=== PATIENT | female | born 1945 | race Caucasian/White ===

== ENCOUNTER 2017-09-18 09:49 | Day surgery (SDC) | payer MEDICARE ==
[2017-09-12 12:02] LABS: BASOPHILS # (AUTO) 0.1 X10'3 (0-0.2); BASOPHILS % (AUTO) 0.8 % (0-1); EOSINOPHILS # (AUTO) 0.2 X10'3 (0-0.9); EOSINOPHILS % (AUTO) 2.1 % (0-6); HEMATOCRIT 42.5 % (35.0-45.0); LYMPHOCYTES # (AUTO) 2.3 X10'3 (1.1-4.8); LYMPHOCYTES % (AUTO) 19.7 % (21-51); MEAN CORPUSCULAR HEMOGLOBIN 30.4 PG (27.0-31.0); MEAN PLATELET VOLUME 8.4 FL (7.4-10.4); MONOCYTES # (AUTO) 1.1 X10'3 (0-0.9); MONOCYTES % (AUTO) 8.9 % (2-12); NEUTROPHILS # (AUTO) 8.1 X10'3 (1.8-7.7); NEUTROPHILS % (AUTO) 68.5 % (42-75); PLATELET COUNT 337 X10'3 (140-440); RED BLOOD COUNT 4.62 X10'6 (4.20-5.60); RED CELL DISTRIBUTION WIDTH 14.9 % (11.5-14.5); WHITE BLOOD COUNT 11.9 X10'3 (4.5-11.0)
[2017-09-12 12:18] LABS: PARTIAL THROMBOPLASTIN TIME 29 SECONDS (22-32); PROTHROMBIN TIME 10.2 SECONDS (9.0-12.0)
[2017-09-12 12:21] LABS: ALBUMIN 3.4 G/DL (3.4-5.0); ANION GAP 10 (8-16); BLOOD UREA NITROGEN 18 MG/DL (7-18); BUN/CREATININE RATIO 15.4 (6.6-38.0); CALCIUM 9.3 MG/DL (8.5-10.1); CHLORIDE 106 MMOL/L (99-107); CHOL/HDL RATIO 2.4 (0.00-4.99); CHOLESTEROL 111 MG/DL (0-200); CREATININE 1.17 MG/DL (0.40-0.90); GLUCOSE 139 MG/DL (70-104); HDL CHOLESTEROL 46 MG/DL (35-60); LDL CHOLESTEROL 45 MG/DL (50-100); POTASSIUM 4.2 MMOL/L (3.5-5.1); SODIUM 142 MMOL/L (135-145); TOTAL CARBON DIOXIDE 26.2 MMOL/L (24-32); TRIGLYCERIDES 107 MG/DL (20-135); eGFR 45 ML/MIN
[~2017-09-18] VITALS: Ht 154.9 cm; Wt 53.4 kg
[2017-09-18] VITALS (12 sets, daily range): BP systolic 112–132; BP diastolic 51–62
[2017-09-18] MEDS ORDERED: LORazepam 0.5 MG tablet PO PRN (10:15)
[2017-09-18] MEDS ORDERED: diphenhydrAMINE 25mg capsule PO PRN (10:15)
[2017-09-18] MEDS ORDERED: normal saline 1000ml 1,000 ML IV SCH ×2 (10:15→13:30)
[2017-09-18] MEDS ORDERED: RANI150C4 PO (10:39)
[2017-09-18] MEDS ORDERED: ROSU40TA PO (10:39)
[2017-09-18] MEDS ORDERED: METF1000 PO (10:39)
[2017-09-18] MEDS ORDERED: MIRT45TA PO (10:39)
[2017-09-18] MEDS ORDERED: CLOP75TA35 PO (10:39)
[2017-09-18] MEDS ORDERED: ASPI-611 PO (10:39)
[2017-09-18] MEDS ORDERED: fentaNYL/PF 50MCG/1 ML 2ML syringe ONE (11:50)
[2017-09-18] MEDS ORDERED: LIDOcaine 1% w/EPI 1:100,000 30ml vial (MDV) ONE (11:50)
[2017-09-18] MEDS ORDERED: midazolam 2 mg/2 ml injection ONE (11:50)
[2017-09-18] MEDS ORDERED: iohexol 350MG/ML 100ml bottle IV ONE (11:50)
[2017-09-18] MEDS ORDERED: HYDROcodone/acetaminophen 10/325mg tab PO PRN (13:30)
[2017-09-18] MEDS ORDERED: HYDROcodone/acetaminophen 5mg/325mg tablet PO PRN (13:30)
[2017-09-18] MEDS ORDERED: OXAZEpam 15mg capsule PO PRN (13:30)
[2017-09-18] MEDS ORDERED: nitroGLYCERIN 0.4mg SUBLingual tab SL PRN (13:30)
[2017-09-18] MEDS ORDERED: proCHLORperazine 10 MG/2 ml inj IV PRN (13:30)
[2017-09-18] MEDS ORDERED: ondansetron/PF 4mg/2ml inj IV PRN (13:30)
== END 2017-09-18 18:05 | disposition home or self-care (01) ==
LOC: SSTAY O 09:49
PROVIDERS: ATTEND Internal Medicine Interventional Cardiology
DX: I25.10 Atherosclerotic heart disease of native coronary artery without angina pectoris (principal); I45.10 Unspecified right bundle-branch block; E11.9 Type 2 diabetes mellitus without complications; I65.23 Occlusion and stenosis of bilateral carotid arteries; M85.88 Other specified disorders of bone density and structure, other site; I10 Essential (primary) hypertension; E78.5 Hyperlipidemia, unspecified; F17.210 Nicotine dependence, cigarettes, uncomplicated; F32.9 Major depressive disorder, single episode, unspecified; F41.9 Anxiety disorder, unspecified; Z95.5 Presence of coronary angioplasty implant and graft; Z90.89 Acquired absence of other organs; Z72.89 Other problems related to lifestyle; Z86.79 Personal history of other diseases of the circulatory system; Z86.73 Personal history of transient ischemic attack (TIA), and cerebral infarction without residual deficits; Z79.01 Long term (current) use of anticoagulants; Z79.84 Long term (current) use of oral hypoglycemic drugs; Z79.82 Long term (current) use of aspirin; Z79.899 Other long term (current) drug therapy
CPT/HCPCS: 36415; 80048; 80061; 82948; 85025; 85610; 85730; 93005; 93458; 99152; 99153; A6257; C1769; J1644; J2250; J3010; J3490; J7030; Q0163; Q9967; A4620

== ENCOUNTER 2018-01-30 05:29 | Inpatient (IN) | payer MEDICARE ==
[2018-01-28 13:56] LABS: ABG BASE EXCESS -0.2 mmol/L (-2.0-3.0); ABG HCO3 23.8 mmol/L (22.0-26.0); ABG OXYGEN SATURATION 96.5 % (95-98); ABG PCO2 (T) 36.8 mmHg (32.0-45.0); ABG PH (T) 7.429 (7.350-7.450); ABG PO2 (T) 79.9 mmHg (83-108); ALLEN'S TEST Positive; FCOHb 6.6 % (0.5-1.5); FMetHb 0.3 % (0.3-1.12); FO2Hb 89.8 % (94-100); TOTAL HEMOGLOBIN 13.7 G/dl (12.0-16.0)
[2018-01-28 14:37] LABS: CLARITY,URINE CLEAR (Clear); COLOR,URINE YELLOW (Yellow); GLUCOSE, URINE NEGATIVE (Neg); KETONES,URINE NEGATIVE (Neg); LEUKOCYTE ESTERASE ,URINE LARGE (Neg); NITRITES, URINE NEGATIVE (Neg); OCCULT BLOOD,URINE NEGATIVE (Neg); PROTEIN,URINE NEGATIVE (Neg); UROBILINOGEN,URINE 0.2 E.U/dL (0.2-1.0)
[2018-01-28 14:44] LABS: ALBUMIN 3.7 G/DL (3.4-5.0); ALKALINE PHOSPHATASE 62 IU/L (46-116); BLOOD UREA NITROGEN 17 MG/DL (7-18); BUN/CREATININE RATIO 17.3 (6.6-38.0); CALCIUM 8.9 MG/DL (8.5-10.1); CHLORIDE 105 MMOL/L (99-107); CREATININE 0.98 MG/DL (0.40-0.90); PRE OP ALT 28 U/L (30-65); PRE OP ANION GAP 10 (8-16); PRE OP AST 26 U/L (10-37); PRE OP BILIRUB, TOTAL 0.3 MG/DL (0.0-1.0); PRE OP GLUCOSE 78 MG/DL (70-104); PRE OP SODIUM 142 MMOL/L (135-145); TOTAL CARBON DIOXIDE 27.3 MMOL/L (24-32); TOTAL PROTEIN 7.4 G/DL (6.4-8.2); eGFR 56 ML/MIN
[2018-01-28 14:52] LABS: BASOPHILS # (AUTO) 0.1 X10'3 (0-0.2); BASOPHILS % (AUTO) 1.3 % (0-1); EOSINOPHILS # (AUTO) 0.2 X10'3 (0-0.9); EOSINOPHILS % (AUTO) 2.2 % (0-6); LYMPHOCYTES # (AUTO) 3.2 X10'3 (1.1-4.8); LYMPHOCYTES % (AUTO) 33.8 % (21-51); MEAN CORPUSCULAR HEMOGLOBIN 30.8 PG (27.0-31.0); MEAN CORPUSCULAR HGB CONC 34.2 % (33.0-36.5); MEAN CORPUSCULAR VOLUME 90.1 FL (78-98); MEAN PLATELET VOLUME 8.9 FL (7.4-10.4); MONOCYTES # (AUTO) 0.9 X10'3 (0-0.9); NEUTROPHILS # (AUTO) 5.1 X10'3 (1.8-7.7); NEUTROPHILS % (AUTO) 53.7 % (42-75); PRE OP HEMATOCRIT 38.9 % (35.0-45.0); PRE OP HEMOGLOBIN 13.3 g/dL (12.0-16.0); PRE OP PLATELET COUNT 378 X10'3 (140-440); RED BLOOD COUNT 4.32 X10'6 (4.20-5.60); RED CELL DISTRIBUTION WIDTH 14.5 % (11.5-14.5)
[2018-01-28 14:52] LABS: UA COLLECTION TYPE CLN CATCH MIDSTREAM
[2018-01-28 14:54] LABS: BACTERIA,URINE 1+ /HPF (Neg); RBC,URINE NONE SEEN /HPF (0-2); SQUAMOUS EPITHELIAL CELL,UR FEW /LPF (FEW); WBC,URINE 30-50 /HPF (0-4)
[2018-01-30] VITALS (17 sets, daily range): BP systolic 98–138; BP diastolic 50–62
[~2018-01-30] VITALS: Ht 156.2 cm; Wt 65.4 kg
[2018-01-30] MEDS: insulin regular, human inj. 100 UNITS in normal saline 100ml IV IV SCH ×2 (05:00)
[~2018-01-30 05:29] MED LIST: ASPI-611 PO; CLOP75TA35 PO; LORazepam 2 mg/ml vial IV PRN; METF1000 PO; MIRT45TA PO; RANI150C4 PO; ROSU40TA PO; ceFAZolin 2gm in dextrose, iso 100 ML IV ONE; cefazolin/dext.iso 2gm/100 ML IV ONE; dextrose 50%-water 50ml dispensing syringe IV PRN; insulin Lispro (HumaLOG) vial - multi-dose SQ PRN; ringers solution, lacted 1,000 ML IV SCH
[2018-01-30] MEDS ORDERED: metoprolol tartrate 12.5mg (1/2 tablet) PO ONE (05:30)
[2018-01-30] MEDS ORDERED: albuterol 2.5 MG/3 ML nebule NEB ONE (05:30)
[2018-01-30] MEDS ORDERED: famotidine 20mg tablet PO ONE (05:30)
[2018-01-30] MEDS ORDERED: cefazolin/dext.iso 2gm/100 ML IV ONE (05:30)
[2018-01-30] MEDS ORDERED: VANCOMYCIN INJ 1000 MG in NORMAL SALINE 250ml IV.SOLN IV ONE (05:30)
[2018-01-30] MEDS ORDERED: LIDOcaine 1% (10mg/ml) 2ml vial ONE (05:51)
[2018-01-30] MEDS: mupirocin 2% nasal ointment 1gm UD NS SCH ×3 (06:03→20:25)
[2018-01-30] MEDS ORDERED: LORazepam 2 mg/ml vial ONE (07:45)
[2018-01-30] MEDS ORDERED: protamine sulf. 10mg/ml inj. IV ONE (07:45)
[2018-01-30] MEDS ORDERED: INSULIN R 100 UNIT in NS 100ML (1 UNIT/1 ML) BAG IV ONE (07:45)
[2018-01-30] MEDS ORDERED: isoflurane 100ml inhalation liquid IH ONE (07:45)
[2018-01-30] MEDS ORDERED: DOPamine/D5W 400mg/250ml bag IV ONE (07:45)
[2018-01-30] MEDS ORDERED: nitroGLYCERIN in D5W 50mg/250ml (Tridil) infusion IV ONE (07:45)
[2018-01-30] MEDS ORDERED: aminocaproic acid 250 MG/1 ML inj. ONE ×2 (07:45→09:00)
[2018-01-30] MEDS ORDERED: SUFENTANIL CITRATE 50 MCG/ML 2ml ampule IV ONE (07:56)
[2018-01-30] MEDS ORDERED: etomidate 2mg/ml inj. ONE (07:58)
[2018-01-30] MEDS ORDERED: pancuronium br 1mg/ml inj IV ONE (07:58)
[2018-01-30] MEDS ORDERED: rocuronium 10mg/ml inj IV ONE (07:58)
[2018-01-30 08:51] LABS: ABG BASE EXCESS -3.3 mmol/L (-2.0-3.0); ABG HCO3 21.6 mmol/L (22.0-26.0); ABG OXYGEN SATURATION 99.6 % (95-98); ABG PH 7.372 (7.350-7.450); ABG PO2 485.3 mmHg (60.0-100.0); CL (ABG) 109 mmol/L (99-107); FCOHb 2.7 % (0.5-1.5); FMetHb 0.2 % (0.3-1.12); FO2Hb 96.7 % (94-100); GLUCOSE (ABG) 116 mg/dl (70-105); IONIZED CA (ABG) 1.18 mmol/L (1.03-1.32); K (ABG) 4.3 mmol/L (3.3-5.1); NA (ABG) 138 mmol/L (135-145); TOTAL HEMOGLOBIN 11.5 G/dl (12.0-16.0)
[2018-01-30] MEDS ORDERED: potassium Cl 2 mEq/ml inj IV ONE (09:00)
[2018-01-30] MEDS ORDERED: heparin 10,000 units/1 ML INJ ONE (09:00)
[2018-01-30] MEDS ORDERED: phenylephrine 10mg/ml inj. ONE (09:00)
[2018-01-30] MEDS ORDERED: sodium bicarbonate (8.4%) 1 mEq/ml syringe ONE (09:00)
[2018-01-30] MEDS ORDERED: albumin (human) 25% 100 ML IV solution IV ONE (09:00)
[2018-01-30] MEDS ORDERED: LIDOcaine 2% (20 mg/ml) 5ml cardiac syringe ONE (09:00)
[2018-01-30] MEDS ORDERED: heparin 1,000 units/ml 10ml inj ONE (09:00)
[2018-01-30] MEDS ORDERED: methylPREDNISolone sod succ 1000mg vial ONE (09:00)
[2018-01-30] MEDS ORDERED: magnesium sulf 1 GM/2 ML ONE (09:00)
[2018-01-30] MEDS ORDERED: calcium chloride 100 MG/1 ML inj IV ONE (09:00)
[2018-01-30 09:11] LABS: ACT @ 1.70 U 323 SEC (193-297); ACT @ 2.84 U 453 SEC (260-420); BASELINE ACT 163 SEC (101-148); PATIENT WEIGHT 54.0k KG
[2018-01-30 09:45] LABS: ABG HCO3 23.4 mmol/L (22.0-26.0); ABG OXYGEN SATURATION 99.4 % (95-98); ABG PCO2 37.3 mmHg (35.0-45.0); ABG PH 7.415 (7.350-7.450); ABG PO2 412.8 mmHg (60.0-100.0); CL (ABG) 107 mmol/L (99-107); FCOHb 2.6 % (0.5-1.5); FMetHb 0.3 % (0.3-1.12); FO2Hb 96.5 % (94-100); GLUCOSE (ABG) 145 mg/dl (70-105); IONIZED CA (ABG) 1.01 mmol/L (1.03-1.32); K (ABG) 5.1 mmol/L (3.3-5.1); NA (ABG) 132 mmol/L (135-145); TOTAL HEMOGLOBIN 7.9 G/dl (12.0-16.0)
[2018-01-30 10:01] LABS: ABG HCO3 VENOUS 24.7 mmol/L; ABG PCO2 VENOUS 45.8 mmHg; ABG PO2 VENOUS 56.3 mmHg; CL (ABG) 107 mmol/L (99-107); FCOHb VENOUS 2.4 %; FHHb VENOUS 11.5 %; FMetHb VENOUS 0.3 %; FO2Hb VENOUS 85.8 %; GLUCOSE (ABG) 170 mg/dl (70-105); IONIZED CA (ABG) 1.05 mmol/L (1.03-1.32); K (ABG) 4.4 mmol/L (3.3-5.1); NA (ABG) 132 mmol/L (135-145); TOTAL HEMOGLOBIN 8.6 G/dl (12.0-16.0)
[2018-01-30 10:26] LABS: ABG BASE EXCESS -2.2 mmol/L (-2.0-3.0); ABG HCO3 23.5 mmol/L (22.0-26.0); ABG OXYGEN SATURATION 99.4 % (95-98); ABG PCO2 44.2 mmHg (35.0-45.0); ABG PH 7.343 (7.350-7.450); ABG PO2 355.4 mmHg (60.0-100.0); CL (ABG) 108 mmol/L (99-107); FCOHb 2.3 % (0.5-1.5); FMetHb 0.3 % (0.3-1.12); FO2Hb 96.8 % (94-100); GLUCOSE (ABG) 148 mg/dl (70-105); IONIZED CA (ABG) 1.05 mmol/L (1.03-1.32); K (ABG) 3.6 mmol/L (3.3-5.1); NA (ABG) 135 mmol/L (135-145); TOTAL HEMOGLOBIN 8.4 G/dl (12.0-16.0)
[2018-01-30 11:00] LABS: ABG BASE EXCESS -1.8 mmol/L (-2.0-3.0); ABG HCO3 21.6 mmol/L (22.0-26.0); ABG PCO2 30.8 mmHg (35.0-45.0); ABG PH 7.464 (7.350-7.450); ABG PO2 447.1 mmHg (60.0-100.0); CL (ABG) 103 mmol/L (99-107); FCOHb 2.4 % (0.5-1.5); FMetHb 0.5 % (0.3-1.12); FO2Hb 96.1 % (94-100); GLUCOSE (ABG) 104 mg/dl (70-105); IONIZED CA (ABG) 1.41 mmol/L (1.03-1.32); K (ABG) 3.7 mmol/L (3.3-5.1); NA (ABG) 129 mmol/L (135-145); TOTAL HEMOGLOBIN 7.2 G/dl (12.0-16.0)
[2018-01-30 11:41] LABS: ABG BASE EXCESS 0.9 mmol/L (-2.0-3.0); ABG HCO3 25.4 mmol/L (22.0-26.0); ABG OXYGEN SATURATION 99.2 % (95-98); ABG PCO2 40.2 mmHg (35.0-45.0); ABG PH 7.419 (7.350-7.450); ABG PO2 474.7 mmHg (60.0-100.0); CL (ABG) 109 mmol/L (99-107); FCOHb 1.6 % (0.5-1.5); FMetHb 0.7 % (0.3-1.12); FO2Hb 96.9 % (94-100); GLUCOSE (ABG) 91 mg/dl (70-105); NA (ABG) 137 mmol/L (135-145); TOTAL HEMOGLOBIN 8.3 G/dl (12.0-16.0)
[2018-01-30 12:10] LABS: ACTIVATED CLOTTING TIME 132 SEC (101-148)
[2018-01-30] MEDS ORDERED: ondansetron/PF 4mg/2ml inj IV PRN (12:10)
[2018-01-30] MEDS ORDERED: acetaminophen 325mg tablet PO PRN (12:10)
[2018-01-30] MEDS ORDERED: sodium phosphate inj. 30 MMOL in dextrose 5%-water 250 ML IV PRN (12:10)
[2018-01-30] MEDS ORDERED: DOPamine 400mg/D5W 250ml 250 ML IV PRN (12:10)
[2018-01-30] MEDS ORDERED: dextrose 50%-water 50ml dispensing syringe IV PRN (12:10)
[2018-01-30] MEDS ORDERED: magnesium hydroxide 30ml (MOM) UD suspension PO PRN (12:10)
[2018-01-30] MEDS ORDERED: HYDROcodone/acetaminophen 10/325mg tab PO PRN (12:10)
[2018-01-30] MEDS ORDERED: potassium Cl 20mEq/100mL bag 100 ML IV PRN ×2 (12:10)
[2018-01-30] MEDS ORDERED: magnesium 4gm in 100ml NS 100 ML IV PRN (12:10)
[2018-01-30] MEDS ORDERED: Neutra Phos packet PO PRN (12:10)
[2018-01-30] MEDS ORDERED: insulin regular, human inj. 100 UNITS in normal saline 100ml IV soln 100 ML IV SCH ×2 (12:10)
[2018-01-30] MEDS ORDERED: sodium phosphate inj. 15 MMOL in dextrose 5%-water 150 ML IV PRN (12:10)
[2018-01-30] MEDS ORDERED: nitroGLYCERIN-Tridil 50MG/D5W 250 ML IV PRN (12:10)
[2018-01-30] MEDS ORDERED: metoclopramide 5 mg/ml inj IV PRN (12:10)
[2018-01-30] MEDS ORDERED: normal saline 250ml IV soln 250 ML IV PRN (12:10)
[2018-01-30] MEDS ORDERED: albumin (Human) 5% 250ml 250 ML IV ONE (12:27)
[2018-01-30 12:50] LABS: BASOPHILS % (AUTO) 0.2 % (0-1); EOSINOPHILS # (AUTO) 0.4 X10'3 (0-0.9); EOSINOPHILS % (AUTO) 1.9 % (0-6); HEMATOCRIT 33.2 % (35.0-45.0); HEMOGLOBIN 11.1 g/dl (12.0-16.0); LYMPHOCYTES # (AUTO) 1.1 X10'3 (1.1-4.8); LYMPHOCYTES % (AUTO) 5.6 % (21-51); MEAN CORPUSCULAR HEMOGLOBIN 30.3 PG (27.0-31.0); MEAN CORPUSCULAR HGB CONC 33.5 % (33.0-36.5); MEAN CORPUSCULAR VOLUME 90.3 FL (78-98); MEAN PLATELET VOLUME 8.3 FL (7.4-10.4); MONOCYTES # (AUTO) 1.2 X10'3 (0-0.9); NEUTROPHILS # (AUTO) 17.2 X10'3 (1.8-7.7); NEUTROPHILS % (AUTO) 86.3 % (42-75); PLATELET COUNT 149 X10'3 (140-440); RED BLOOD COUNT 3.67 X10'6 (4.20-5.60); RED CELL DISTRIBUTION WIDTH 14.6 % (11.5-14.5)
[2018-01-30 12:55] LABS: INR 1.2 INR; PARTIAL THROMBOPLASTIN TIME 30 SECONDS (22-32)
[2018-01-30] MEDS: insulin Lispro (HumaLOG) vial - multi-dose SQ SCH ×2 (13:00→18:00)
[2018-01-30 13:02] LABS: ALANINE AMINOTRANSFERASE 22 U/L (12-78); ALBUMIN 2.8 G/DL (3.4-5.0); ALBUMIN/GLOBULIN RATIO 1.2 (1.1-1.5); ALKALINE PHOSPHATASE 38 IU/L (46-116); ANION GAP 11 (8-16); ASPARTATE AMINO TRANSFERASE 44 U/L (10-37); BILIRUBIN,TOTAL 0.4 MG/DL (0.1-1.0); BLOOD UREA NITROGEN 16 MG/DL (7-18); BUN/CREATININE RATIO 15.8 (6.6-38.0); CALCIUM 8.7 MG/DL (8.5-10.1); CHLORIDE 110 MMOL/L (99-107); CREATININE 1.01 MG/DL (0.40-0.90); GLUCOSE 127 MG/DL (70-104); SODIUM 147 MMOL/L (135-145); TOTAL CARBON DIOXIDE 26.1 MMOL/L (24-32); TOTAL PROTEIN 5.1 G/DL (6.4-8.2); eGFR 54 ML/MIN
[2018-01-30 13:04] LABS: MAGNESIUM 3.8 MG/DL (1.5-2.4); PHOSPHORUS 2.4 MG/DL (2.3-4.5)
[2018-01-30 13:05] LABS: POTASSIUM 3.7 MMOL/L (3.5-5.1)
[2018-01-30] MEDS: albumin (Human) 5% 250ml 250 ML IV PRN (13:25)
[2018-01-30] MEDS: sodium chloride 0.45% 1,000 ML IV SCH (13:34)
[2018-01-30] MEDS: potassium Cl 20mEq/100mL bag 100 ML IV PRN ×2 (13:56→22:04)
[2018-01-30 14:11] LABS: ABG BASE EXCESS -4.4 mmol/L (-2.0-3.0); ABG HCO3 20.4 mmol/L (22.0-26.0); ABG OXYGEN SATURATION 97.2 % (95-98); ABG PCO2 (T) 35.1 mmHg (32.0-45.0); ABG PH (T) 7.378 (7.350-7.450); ABG PO2 (T) 101.3 mmHg (83-108); FCOHb 0.1 % (0.5-1.5); FLOW 30 L/min; FO2Hb 97.1 % (94-100); MINUTE VOLUME 6 L/min; PATIENT TEMPERATURE 36.1; PEEP 5 cm H2O; RESPIRATORY RATE 12 b/min; RESPIRATORY RATE (OBSERVED) 12 b/min; TIDAL VOLUME 500 mL; TOTAL HEMOGLOBIN 10.6 G/dl (12.0-16.0)
[2018-01-30] MEDS ORDERED: DOBUTamine-DoBUTrex 500mg/D5W 250 ML IV ONE (14:14)
[2018-01-30] MEDS: DOBUTamine-DoBUTrex 500mg/D5W 250 ML IV SCH (14:54)
[2018-01-30] MEDS ORDERED: ipratropium/albuterol 3ml nebule IH SCH (15:00)
[2018-01-30] MEDS: ceFAZolin 1GM/D5W- ADD-VANTAGE 50 ML IV SCH (16:20)
[2018-01-30 18:12] LABS: BASOPHILS % (AUTO) 0 % (0-1); EOSINOPHILS # (AUTO) 0.3 X10'3 (0-0.9); EOSINOPHILS % (AUTO) 1.4 % (0-6); HEMATOCRIT 28.9 % (35.0-45.0); HEMOGLOBIN 9.7 g/dl (12.0-16.0); LYMPHOCYTES # (AUTO) 0.5 X10'3 (1.1-4.8); LYMPHOCYTES % (AUTO) 2.8 % (21-51); MEAN CORPUSCULAR HEMOGLOBIN 30.5 PG (27.0-31.0); MEAN CORPUSCULAR HGB CONC 33.5 % (33.0-36.5); MEAN PLATELET VOLUME 8.4 FL (7.4-10.4); MONOCYTES # (AUTO) 1.3 X10'3 (0-0.9); MONOCYTES % (AUTO) 7.6 % (2-12); NEUTROPHILS # (AUTO) 15.7 X10'3 (1.8-7.7); NEUTROPHILS % (AUTO) 88.2 % (42-75); PLATELET COUNT 131 X10'3 (140-440); RED BLOOD COUNT 3.18 X10'6 (4.20-5.60); RED CELL DISTRIBUTION WIDTH 14.9 % (11.5-14.5); WHITE BLOOD COUNT 17.8 X10'3 (4.5-11.0)
[2018-01-30 18:20] LABS: ALBUMIN 2.4 G/DL (3.4-5.0); ANION GAP 9 (8-16); BLOOD UREA NITROGEN 17 MG/DL (7-18); BUN/CREATININE RATIO 16.5 (6.6-38.0); CHLORIDE 113 MMOL/L (99-107); CREATININE 1.03 MG/DL (0.40-0.90); GLUCOSE 92 MG/DL (70-104); POTASSIUM 3.8 MMOL/L (3.5-5.1); SODIUM 148 MMOL/L (135-145); eGFR 53 ML/MIN
[2018-01-30] MEDS: morphine 4 MG/ML inj SYRINge IV PRN ×2 (19:27→22:03)
[2018-01-30] MEDS ORDERED: mupirocin 2% nasal ointment 1gm UD NS SCH (20:00)
[2018-01-30] MEDS: docusate sod 100mg capsule PO SCH (20:00)
[2018-01-30] MEDS: vancomycin/NS 1 GM ADD-VANTAGE 250 ML IV SCH (20:24)
[2018-01-30] MEDS: mirtazapine 15mg tablet PO SCH (21:00)
[2018-01-31] VITALS (25 sets, daily range): BP systolic 90–151; BP diastolic 48–67
[2018-01-31] MEDS: ceFAZolin 1GM/D5W- ADD-VANTAGE 50 ML IV SCH ×3 (00:06→15:31)
[2018-01-31 02:36] LABS: BASOPHILS % (AUTO) 0.1 % (0-1); EOSINOPHILS # (AUTO) 0.3 X10'3 (0-0.9); EOSINOPHILS % (AUTO) 1.5 % (0-6); HEMATOCRIT 27.4 % (35.0-45.0); HEMOGLOBIN 9.1 g/dl (12.0-16.0); LYMPHOCYTES % (AUTO) 5.2 % (21-51); MEAN CORPUSCULAR HEMOGLOBIN 30.4 PG (27.0-31.0); MEAN CORPUSCULAR HGB CONC 33.4 % (33.0-36.5); MEAN CORPUSCULAR VOLUME 91.2 FL (78-98); MEAN PLATELET VOLUME 8.6 FL (7.4-10.4); MONOCYTES # (AUTO) 1.5 X10'3 (0-0.9); MONOCYTES % (AUTO) 7.9 % (2-12); NEUTROPHILS % (AUTO) 85.3 % (42-75); PLATELET COUNT 116 X10'3 (140-440); RED BLOOD COUNT 3.01 X10'6 (4.20-5.60); WHITE BLOOD COUNT 18.8 X10'3 (4.5-11.0)
[2018-01-31 02:46] LABS: PARTIAL THROMBOPLASTIN TIME 28 SECONDS (22-32); PROTHROMBIN TIME 10.4 SECONDS (9.0-12.0)
[2018-01-31 02:49] LABS: ALANINE AMINOTRANSFERASE 37 U/L (12-78); ALBUMIN 3.4 G/DL (3.4-5.0); ALBUMIN/GLOBULIN RATIO 1.5 (1.1-1.5); ALKALINE PHOSPHATASE 35 IU/L (46-116); ANION GAP 11 (8-16); ASPARTATE AMINO TRANSFERASE 256 U/L (10-37); BILIRUBIN,TOTAL 0.5 MG/DL (0.1-1.0); BLOOD UREA NITROGEN 19 MG/DL (7-18); BUN/CREATININE RATIO 18.3 (6.6-38.0); CALCIUM 8.5 MG/DL (8.5-10.1); CHLORIDE 113 MMOL/L (99-107); CREATININE 1.04 MG/DL (0.40-0.90); GLUCOSE 101 MG/DL (70-104); MAGNESIUM 2.5 MG/DL (1.5-2.4); PHOSPHORUS 3.9 MG/DL (2.3-4.5); POTASSIUM 4.6 MMOL/L (3.5-5.1); SODIUM 148 MMOL/L (135-145); TOTAL CARBON DIOXIDE 23.9 MMOL/L (24-32); TOTAL PROTEIN 5.6 G/DL (6.4-8.2); eGFR 52 ML/MIN
[2018-01-31 03:41] LABS: ABG BASE EXCESS -4.3 mmol/L (-2.0-3.0); ABG HCO3 19.8 mmol/L (22.0-26.0); ABG OXYGEN SATURATION 97.8 % (95-98); ABG PCO2 (T) 32.9 mmHg (32.0-45.0); ABG PH (T) 7.398 (7.350-7.450); ABG PO2 (T) 116.3 mmHg (83-108); FCOHb 0.3 % (0.5-1.5); FMetHb 0.1 % (0.3-1.12); FO2Hb 97.4 % (94-100); MINUTE VOLUME 6 L/min; PATIENT TEMPERATURE 37.1; PEEP 5 cm H2O; RESPIRATORY RATE (OBSERVED) 15 b/min; TOTAL HEMOGLOBIN 9.9 G/dl (12.0-16.0)
[2018-01-31] MEDS: insulin regular, human inj. 100 UNITS in normal saline 100ml IV IV SCH ×6 (04:02→17:43)
[2018-01-31] MEDS: docusate sod 100mg capsule PO SCH ×3 (07:27→20:19)
[2018-01-31] MEDS: vancomycin/NS 1 GM ADD-VANTAGE 250 ML IV SCH ×2 (07:27→20:19)
[2018-01-31] MEDS: atorvastatin 10mg tablet PO SCH (07:27)
[2018-01-31] MEDS: pantoprazole 40mg Tablet.DR PO SCH (07:27)
[2018-01-31] MEDS: aspirin 325mg tablet, delayed-release (Ecotrin) PO SCH (07:27)
[2018-01-31] MEDS: mupirocin 2% nasal ointment 1gm UD NS SCH ×2 (07:30→20:19)
[2018-01-31] MEDS: insulin Lispro (HumaLOG) vial - multi-dose SQ SCH ×3 (07:30→17:01)
[2018-01-31] MEDS ORDERED: racepinephrine 11.25mg/0.5ml nebule IH PRN (12:10)
[2018-01-31] MEDS: morphine 4 MG/ML inj SYRINge IV PRN ×3 (12:19→20:20)
[2018-01-31] MEDS: albumin (Human) 5% 250ml 250 ML IV PRN (13:26)
[2018-01-31] MEDS: DOBUTamine-DoBUTrex 500mg/D5W 250 ML IV SCH (15:30)
[2018-01-31] MEDS: sodium chloride 0.45% 1,000 ML IV SCH (15:31)
[2018-01-31] MEDS: lisinopril 10 MG tablet PO SCH (20:19)
[2018-01-31] MEDS: mirtazapine 15mg tablet PO SCH (21:00)
[2018-02-01] VITALS (33 sets, daily range): BP systolic 70–132; BP diastolic 34–63
[2018-02-01] MEDS: ceFAZolin 1GM/D5W- ADD-VANTAGE 50 ML IV SCH
[2018-02-01 04:15] LABS: BASOPHILS # (AUTO) 0.1 X10'3 (0-0.2); BASOPHILS % (AUTO) 0.3 % (0-1); EOSINOPHILS % (AUTO) 0 % (0-6); HEMOGLOBIN 9.4 g/dl (12.0-16.0); LYMPHOCYTES # (AUTO) 1.1 X10'3 (1.1-4.8); LYMPHOCYTES % (AUTO) 5.3 % (21-51); MEAN CORPUSCULAR HEMOGLOBIN 30.6 PG (27.0-31.0); MEAN CORPUSCULAR HGB CONC 33.5 % (33.0-36.5); MEAN CORPUSCULAR VOLUME 91.5 FL (78-98); MEAN PLATELET VOLUME 9.4 FL (7.4-10.4); MONOCYTES # (AUTO) 1.7 X10'3 (0-0.9); MONOCYTES % (AUTO) 8.3 % (2-12); NEUTROPHILS # (AUTO) 17.2 X10'3 (1.8-7.7); NEUTROPHILS % (AUTO) 86.1 % (42-75); PLATELET COUNT 91 X10'3 (140-440); RED BLOOD COUNT 3.06 X10'6 (4.20-5.60); RED CELL DISTRIBUTION WIDTH 14.9 % (11.5-14.5)
[2018-02-01 04:23] LABS: ANION GAP 10 (8-16); BLOOD UREA NITROGEN 21 MG/DL (7-18); BUN/CREATININE RATIO 23.3 (6.6-38.0); CALCIUM 8.2 MG/DL (8.5-10.1); CHLORIDE 112 MMOL/L (99-107); GLUCOSE 108 MG/DL (70-104); MAGNESIUM 2.2 MG/DL (1.5-2.4); PHOSPHORUS 3.4 MG/DL (2.3-4.5); POTASSIUM 4.3 MMOL/L (3.5-5.1); SODIUM 146 MMOL/L (135-145); TOTAL CARBON DIOXIDE 23.6 MMOL/L (24-32); eGFR 62 ML/MIN
[2018-02-01] MEDS ORDERED: ketorolac trometh. 30mg/ml inj. IV ONE (05:55)
[2018-02-01] MEDS: atorvastatin 10mg tablet PO SCH (07:55)
[2018-02-01] MEDS: albumin (Human) 5% 250ml 250 ML IV PRN ×2 (07:55→09:44)
[2018-02-01] MEDS: pantoprazole 40mg Tablet.DR PO SCH (07:56)
[2018-02-01] MEDS: mupirocin 2% nasal ointment 1gm UD NS SCH ×2 (07:56→23:28)
[2018-02-01] MEDS: docusate sod 100mg capsule PO SCH ×2 (07:56→20:00)
[2018-02-01] MEDS: aspirin 325mg tablet, delayed-release (Ecotrin) PO SCH (07:56)
[2018-02-01] MEDS: insulin Lispro (HumaLOG) vial - multi-dose SQ SCH ×2 (09:00→13:00)
[2018-02-01] MEDS: HYDROcodone/acetaminophen 10/325mg tab PO PRN ×2 (12:02→17:01)
[2018-02-01] MEDS: morphine 4 MG/ML inj SYRINge IV PRN (12:28)
[2018-02-01] MEDS: magnesium 1gm/100ml D5W IVPB 100 ML IV PRN (13:05)
[2018-02-01] MEDS ORDERED: glucagon, human recombinant 1mg kit SUBCUT PRN (17:15)
[2018-02-01] MEDS ORDERED: MESSAGE TO PHARMACY PO ONE (17:15)
[2018-02-01] MEDS ORDERED: dextrose ORAL solution 15 GM/59 ML bottle PO PRN ×2 (17:15)
[2018-02-01] MEDS ORDERED: dextrose 50%-water 50ml dispensing syringe IV PRN ×2 (17:15)
[2018-02-01] MEDS ORDERED: albumin (Human) 5% 250ml BOTTLE IV STA (18:55)
[2018-02-01 19:55] LABS: MAGNESIUM 2.8 MG/DL (1.5-2.4); POTASSIUM 4.6 MMOL/L (3.5-5.1)
[2018-02-01 20:00] LABS: BASOPHILS % (AUTO) 0 % (0-1); EOSINOPHILS # (AUTO) 0.2 X10'3 (0-0.9); EOSINOPHILS % (AUTO) 1.3 % (0-6); HEMATOCRIT 25.3 % (35.0-45.0); HEMOGLOBIN 8.4 g/dl (12.0-16.0); LYMPHOCYTES % (AUTO) 5.5 % (21-51); MEAN CORPUSCULAR HEMOGLOBIN 30.3 PG (27.0-31.0); MEAN CORPUSCULAR HGB CONC 33.3 % (33.0-36.5); MEAN CORPUSCULAR VOLUME 91.1 FL (78-98); MEAN PLATELET VOLUME 9.1 FL (7.4-10.4); MONOCYTES # (AUTO) 1.5 X10'3 (0-0.9); MONOCYTES % (AUTO) 7.9 % (2-12); NEUTROPHILS # (AUTO) 15.9 X10'3 (1.8-7.7); NEUTROPHILS % (AUTO) 85.3 % (42-75); PLATELET COUNT 74 X10'3 (140-440); RED BLOOD COUNT 2.78 X10'6 (4.20-5.60); RED CELL DISTRIBUTION WIDTH 14.9 % (11.5-14.5); WHITE BLOOD COUNT 18.7 X10'3 (4.5-11.0)
[2018-02-01] MEDS: lisinopril 10 MG tablet PO SCH (20:17)
[2018-02-01] MEDS: mirtazapine 15mg tablet PO SCH (21:00)
[2018-02-01] MEDS: insulin glargine (Lantus) pen - multi-dose SQ SCH (23:40)
[2018-02-02] VITALS (23 sets, daily range): BP systolic 83–121; BP diastolic 50–70
[2018-02-02 03:21] LABS: BASOPHILS % (AUTO) 0.1 % (0-1); EOSINOPHILS # (AUTO) 0.2 X10'3 (0-0.9); EOSINOPHILS % (AUTO) 1.2 % (0-6); HEMATOCRIT 26.1 % (35.0-45.0); HEMOGLOBIN 8.6 g/dl (12.0-16.0); LYMPHOCYTES # (AUTO) 1.2 X10'3 (1.1-4.8); MEAN CORPUSCULAR HEMOGLOBIN 30.3 PG (27.0-31.0); MEAN CORPUSCULAR HGB CONC 32.9 % (33.0-36.5); MEAN CORPUSCULAR VOLUME 92.2 FL (78-98); MEAN PLATELET VOLUME 9.1 FL (7.4-10.4); MONOCYTES # (AUTO) 1.2 X10'3 (0-0.9); MONOCYTES % (AUTO) 7.8 % (2-12); NEUTROPHILS # (AUTO) 12.9 X10'3 (1.8-7.7); NEUTROPHILS % (AUTO) 82.9 % (42-75); PLATELET COUNT 81 X10'3 (140-440); RED BLOOD COUNT 2.83 X10'6 (4.20-5.60); RED CELL DISTRIBUTION WIDTH 15.6 % (11.5-14.5); WHITE BLOOD COUNT 15.6 X10'3 (4.5-11.0)
[2018-02-02 04:14] LABS: ALBUMIN 3.2 G/DL (3.4-5.0); ANION GAP 11 (8-16); BLOOD UREA NITROGEN 36 MG/DL (7-18); CALCIUM 8.2 MG/DL (8.5-10.1); CHLORIDE 112 MMOL/L (99-107); GLUCOSE 151 MG/DL (70-104); MAGNESIUM 2.7 MG/DL (1.5-2.4); PHOSPHORUS 3.1 MG/DL (2.3-4.5); POTASSIUM 4.7 MMOL/L (3.5-5.1); SODIUM 145 MMOL/L (135-145); eGFR 62 ML/MIN
[2018-02-02] MEDS: HYDROcodone/acetaminophen 10/325mg tab PO PRN (04:33)
[2018-02-02] MEDS: docusate sod 100mg capsule PO SCH ×2 (08:21→20:06)
[2018-02-02] MEDS: mupirocin 2% nasal ointment 1gm UD NS SCH ×2 (08:21→20:06)
[2018-02-02] MEDS: pantoprazole 40mg Tablet.DR PO SCH (08:22)
[2018-02-02] MEDS: aspirin 81mg tablet.DR PO SCH (08:22)
[2018-02-02] MEDS: atorvastatin 10mg tablet PO SCH (08:22)
[2018-02-02] MEDS ORDERED: furosemide 40mg/4ml inj IV ONE (11:30)
[2018-02-02] MEDS ORDERED: DOPamine 400mg/D5W 250ml 250 ML IV PRN (12:10)
[2018-02-02] MEDS: lisinopril 10 MG tablet PO SCH (21:00)
[2018-02-02] MEDS: insulin glargine (Lantus) pen - multi-dose SQ SCH (21:00)
[2018-02-02] MEDS: mirtazapine 15mg tablet PO SCH (21:00)
[2018-02-03] VITALS (25 sets, daily range): BP systolic 82–121; BP diastolic 54–72
[2018-02-03 06:13] LABS: BASOPHILS % (AUTO) 0.1 % (0-1); EOSINOPHILS # (AUTO) 0.2 X10'3 (0-0.9); EOSINOPHILS % (AUTO) 1.3 % (0-6); HEMOGLOBIN 9.5 g/dl (12.0-16.0); LYMPHOCYTES % (AUTO) 7.5 % (21-51); MEAN CORPUSCULAR HEMOGLOBIN 30.1 PG (27.0-31.0); MEAN CORPUSCULAR HGB CONC 32.9 % (33.0-36.5); MEAN CORPUSCULAR VOLUME 91.4 FL (78-98); MEAN PLATELET VOLUME 9.4 FL (7.4-10.4); MONOCYTES # (AUTO) 1.1 X10'3 (0-0.9); MONOCYTES % (AUTO) 7.9 % (2-12); NEUTROPHILS # (AUTO) 11.3 X10'3 (1.8-7.7); NEUTROPHILS % (AUTO) 83.2 % (42-75); PLATELET COUNT 120 X10'3 (140-440); RED BLOOD COUNT 3.17 X10'6 (4.20-5.60); RED CELL DISTRIBUTION WIDTH 15.1 % (11.5-14.5); WHITE BLOOD COUNT 13.6 X10'3 (4.5-11.0)
[2018-02-03 06:23] LABS: ANION GAP 14 (8-16); BLOOD UREA NITROGEN 31 MG/DL (7-18); BUN/CREATININE RATIO 39.7 (6.6-38.0); CALCIUM 8.3 MG/DL (8.5-10.1); CHLORIDE 109 MMOL/L (99-107); CREATININE 0.78 MG/DL (0.40-0.90); GLUCOSE 117 MG/DL (70-104); MAGNESIUM 2.1 MG/DL (1.5-2.4); PHOSPHORUS 2.4 MG/DL (2.3-4.5); POTASSIUM 4.1 MMOL/L (3.5-5.1); SODIUM 144 MMOL/L (135-145); TOTAL CARBON DIOXIDE 21.5 MMOL/L (24-32); eGFR 73 ML/MIN
[2018-02-03] MEDS: docusate sod 100mg capsule PO SCH ×2 (08:23→20:00)
[2018-02-03] MEDS: aspirin 81mg tablet.DR PO SCH (08:23)
[2018-02-03] MEDS: atorvastatin 10mg tablet PO SCH (08:23)
[2018-02-03] MEDS: pantoprazole 40mg Tablet.DR PO SCH (08:24)
[2018-02-03] MEDS: mupirocin 2% nasal ointment 1gm UD NS SCH ×2 (08:25→20:00)
[2018-02-03] MEDS: sodium chloride 0.45% 1,000 ML IV SCH (12:10)
[2018-02-03] MEDS: Protein Shake (high protein) 240ml (8oz) cup PO SCH ×2 (13:17→18:50)
[2018-02-03] MEDS: magnesium 1gm/100ml D5W IVPB 100 ML IV PRN ×2 (16:34→17:19)
[2018-02-03] MEDS: lisinopril 10 MG tablet PO SCH (20:59)
[2018-02-03] MEDS: mirtazapine 15mg tablet PO SCH (20:59)
[2018-02-03] MEDS: insulin glargine (Lantus) pen - multi-dose SQ SCH (21:00)
[2018-02-04] VITALS (23 sets, daily range): BP systolic 86–129; BP diastolic 48–69
[2018-02-04 07:49] LABS: MAGNESIUM 2.2 MG/DL (1.5-2.4); PHOSPHORUS 3.1 MG/DL (2.3-4.5)
[2018-02-04] MEDS ORDERED: ketorolac trometh. 30mg/ml inj. IV PRN (08:15)
[2018-02-04] MEDS: docusate sod 100mg capsule PO SCH ×2 (08:21→20:58)
[2018-02-04] MEDS: atorvastatin 10mg tablet PO SCH (08:21)
[2018-02-04] MEDS: pantoprazole 40mg Tablet.DR PO SCH (08:21)
[2018-02-04] MEDS: aspirin 81mg tablet.DR PO SCH (08:21)
[2018-02-04] MEDS: mupirocin 2% nasal ointment 1gm UD NS SCH ×2 (08:22→20:58)
[2018-02-04] MEDS: Protein Shake (high protein) 240ml (8oz) cup PO SCH ×3 (08:42→18:00)
[2018-02-04] MEDS: insulin Lispro (HumaLOG) vial - multi-dose SQ SCH ×2 (13:58→21:03)
[2018-02-04] MEDS: lisinopril 10 MG tablet PO SCH (20:58)
[2018-02-04] MEDS: mirtazapine 15mg tablet PO SCH (20:58)
[2018-02-04] MEDS: insulin glargine (Lantus) pen - multi-dose SQ SCH (21:02)
[2018-02-05] VITALS (15 sets, daily range): BP systolic 83–145; BP diastolic 45–101
[2018-02-05 05:50] LABS: BASOPHILS # (AUTO) 0.1 X10'3 (0-0.2); BASOPHILS % (AUTO) 0.4 % (0-1); EOSINOPHILS # (AUTO) 0.1 X10'3 (0-0.9); EOSINOPHILS % (AUTO) 0.8 % (0-6); HEMATOCRIT 34.3 % (35.0-45.0); HEMOGLOBIN 11.1 g/dl (12.0-16.0); LYMPHOCYTES # (AUTO) 1.9 X10'3 (1.1-4.8); LYMPHOCYTES % (AUTO) 13.7 % (21-51); MEAN CORPUSCULAR HGB CONC 32.2 % (33.0-36.5); MEAN PLATELET VOLUME 9.7 FL (7.4-10.4); MONOCYTES # (AUTO) 2.1 X10'3 (0-0.9); MONOCYTES % (AUTO) 14.6 % (2-12); NEUTROPHILS # (AUTO) 9.9 X10'3 (1.8-7.7); NEUTROPHILS % (AUTO) 70.5 % (42-75); PLATELET COUNT 156 X10'3 (140-440); RED BLOOD COUNT 3.69 X10'6 (4.20-5.60); RED CELL DISTRIBUTION WIDTH 15.3 % (11.5-14.5); WHITE BLOOD COUNT 14.1 X10'3 (4.5-11.0)
[2018-02-05 06:07] LABS: ALANINE AMINOTRANSFERASE 84 U/L (12-78); ALBUMIN/GLOBULIN RATIO 0.9 (1.1-1.5); ALKALINE PHOSPHATASE 71 IU/L (46-116); ANION GAP 13 (8-16); ASPARTATE AMINO TRANSFERASE 105 U/L (10-37); BILIRUBIN,TOTAL 0.9 MG/DL (0.1-1.0); BLOOD UREA NITROGEN 27 MG/DL (7-18); BUN/CREATININE RATIO 38.6 (6.6-38.0); CALCIUM 8.2 MG/DL (8.5-10.1); CHLORIDE 108 MMOL/L (99-107); GLUCOSE 81 MG/DL (70-104); MAGNESIUM 2.1 MG/DL (1.5-2.4); POTASSIUM 4.6 MMOL/L (3.5-5.1); SODIUM 143 MMOL/L (135-145); TOTAL CARBON DIOXIDE 22.5 MMOL/L (24-32); TOTAL PROTEIN 6.3 G/DL (6.4-8.2); eGFR 82 ML/MIN
[2018-02-05 06:42] LABS: TOTAL CELLS COUNTED 100
[2018-02-05 06:43] LABS: LARGE PLATELETS FEW; PLATELET ESTIMATE NORMAL
[2018-02-05] MEDS: aspirin 81mg tablet.DR PO SCH (08:30)
[2018-02-05] MEDS: docusate sod 100mg capsule PO SCH (08:30)
[2018-02-05] MEDS: atorvastatin 10mg tablet PO SCH (08:30)
[2018-02-05] MEDS: pantoprazole 40mg Tablet.DR PO SCH (08:31)
[2018-02-05] MEDS: Protein Shake (high protein) 240ml (8oz) cup PO SCH ×2 (08:31→13:36)
[2018-02-05] MEDS: mupirocin 2% nasal ointment 1gm UD NS SCH (08:33)
[2018-02-05] MEDS: insulin Lispro (HumaLOG) vial - multi-dose SQ SCH ×2 (09:35→13:39)
[2018-02-05] MEDS: sodium chloride 0.45% 1,000 ML IV SCH (12:10)
== END 2018-02-05 15:28 | DRG 219 ==
LOC: PAS IN 05:29 → EDSTATUS 08:30 → CICU 2S 08:35
PROVIDERS: ADMIT Thoracic Surgery (Cardiothoracic Vascular Surgery); ATTEND Thoracic Surgery (Cardiothoracic Vascular Surgery)
PROC: 02CX0ZZ Extirpation of Matter from Thoracic Aorta, Ascending/Arch, Open Approach (ICD-10-PCS; 2018-01-30)
PROC: 02L70CK Occlusion of Left Atrial Appendage with Extraluminal Device, Open Approach (ICD-10-PCS; 2018-01-30)
PROC: B24BZZ4 Ultrasonography of Heart with Aorta, Transesophageal (ICD-10-PCS; 2018-01-30)
PROC: 5A1221Z Performance of Cardiac Output, Continuous (ICD-10-PCS; 2018-01-30)
PROC: 4A133B3 Monitoring of Arterial Pressure, Pulmonary, Percutaneous Approach (ICD-10-PCS; 2018-01-30)
PROC: 02HQ32Z Insertion of Monitoring Device into Right Pulmonary Artery, Percutaneous Approach (ICD-10-PCS; 2018-01-30)
PROC: 02HV33Z Insertion of Infusion Device into Superior Vena Cava, Percutaneous Approach (ICD-10-PCS; 2018-01-30)
PROC: 3E08317 Introduction of Other Thrombolytic into Heart, Percutaneous Approach (ICD-10-PCS; 2018-01-30)
PROC: 5A1223Z Performance of Cardiac Pacing, Continuous (ICD-10-PCS; 2018-01-30)
PROC: B548ZZA Ultrasonography of Superior Vena Cava, Guidance (ICD-10-PCS; 2018-01-30)
PROC: 02RG08Z Replacement of Mitral Valve with Zooplastic Tissue, Open Approach (ICD-10-PCS; principal; 2018-01-30 07:45)
DX: I08.0 Rheumatic disorders of both mitral and aortic valves (principal); I50.31 Acute diastolic (congestive) heart failure; I11.0 Hypertensive heart disease with heart failure; E11.51 Type 2 diabetes mellitus with diabetic peripheral angiopathy without gangrene; F41.9 Anxiety disorder, unspecified; K21.9 Gastro-esophageal reflux disease without esophagitis; E78.00 Pure hypercholesterolemia, unspecified; I95.9 Hypotension, unspecified; I25.10 Atherosclerotic heart disease of native coronary artery without angina pectoris; M85.80 Other specified disorders of bone density and structure, unspecified site; I44.0 Atrioventricular block, first degree; R41.0 Disorientation, unspecified; Z98.61 Coronary angioplasty status; Z79.899 Other long term (current) drug therapy; Z79.82 Long term (current) use of aspirin; Z79.84 Long term (current) use of oral hypoglycemic drugs; Z72.0 Tobacco use; Z86.73 Personal history of transient ischemic attack (TIA), and cerebral infarction without residual deficits; Z80.9 Family history of malignant neoplasm, unspecified; Z82.49 Family history of ischemic heart disease and other diseases of the circulatory system
CPT/HCPCS: 0232T; 93312; 93325; 36415; 36600; 71045; 71046; 80048; 80053; 81001; 82330; 82435; 82803; 82947; 82948; 83036; 83735; 84100; 84132; 84295; 85018; 85025; 85347; 85384; 85576; 85610; 85730; 86885; 86900; 86901; 86920; 87070; 87088; 88305; 93005; 93880; 93971; 94002; 94003; 94010; 94640; 94668; 94760; 97110; 97116; 97162; 97530; A4649; A6209; A6213; A6222; A6250; A6255; A6257; A6258; A6449; A7000; A7048; C1751; J0690; J1250; J1265; J1644; J1815; J1885; J1940; J2001; J2060; J2270; J2370; J2720; J2930; J3370; J3475; J3480; J3490; J7030; J7120; P9045; P9047